=== PATIENT | female | born 1990 | race Caucasian/White ===

== ENCOUNTER 2021-12-25 12:57 | Outpatient (CLI) | payer BC | END 2021-12-25 12:58 | disposition home or self-care (01) | LOC: CSHLAB 12:57 | PROVIDERS: ATTEND Obstetrics & Gynecology | DX: Z20.822 Contact with and (suspected) exposure to COVID-19 (principal) | CPT/HCPCS: U0003; U0005 ==

== ENCOUNTER 2021-12-26 13:41 | Inpatient (IN) | payer BC ==
[~2021-12-26 13:41] MED LIST: Bupivacaine/Epinephrine 0.25% 30 ML VIAL ONE; Lidocaine 2% PF 5 ML VIAL ONE; ePHEDrine Sulfate 50 MG/10 ML VIAL ONE
[2021-12-26] MEDS ORDERED: HYDROcodone/Acetaminophen 5/325 mg Tablet PO PRN ×2 (14:18)
[2021-12-26] MEDS ORDERED: Lidocaine 1% (PF) 30 ML VIAL SC PRN (14:18)
[2021-12-26] MEDS ORDERED: hydrALAZINE 20 MG/ML VIAL SLOW IVP PRN (14:18)
[2021-12-26] MEDS ORDERED: Ibuprofen 800 MG TAB PO PRN (14:18)
[2021-12-26] MEDS ORDERED: Carboprost 250 MCG/ML AMP IM PRN (14:18)
[2021-12-26] MEDS ORDERED: Ondansetron PF 4 MG/2 ML Vial IVP PRN ×2 (14:18→18:47)
[2021-12-26] MEDS ORDERED: Methylergonovine 0.2 MG/ML VIAL IM PRN (14:18)
[2021-12-26] MEDS ORDERED: Promethazine HCl 25 MG/ML VIAL IM PRN ×2 (14:18→18:47)
[2021-12-26] MEDS ORDERED: Acetaminophen 500 MG TAB PO PRN (14:18)
[2021-12-26] MEDS ORDERED: Diphenoxylate HCl/Atropine Tablet PO PRN ×2 (14:18)
[2021-12-26] MEDS ORDERED: Misoprostol 200 MCG TAB PR PRN (14:18)
[2021-12-26] MEDS ORDERED: Butorphanol Tartrate 1 MG/ML VIAL SLOW IVP PRN (14:18)
[2021-12-26] MEDS ORDERED: Lactated Ringer's 1,000 ML IV SCH (14:30)
[2021-12-26] MEDS ORDERED: NS w/ Oxytocin 30 units 500 ML IV SCH ×2 (14:30)
[2021-12-26 15:08] VITALS: BMI 23.4
[2021-12-26 15:08] LABS: Hemoglobin 12.3 g/dL (12.0-15.5); Mean Corpuscular HGB CONC 33.2 g/dL (32.0-36.0); Mean Corpuscular Volume 96.6 fl (81.6-98.3); Mean Platelet Volume 10.1 fl (7.4-10.4); Platelet Count 369 10x3/uL (150-450); RBC Distribution Width 12.4 % (11.5-14.5); Red Blood Cell (RBC) Count 3.84 10x6/uL (3.90-5.03); White Blood Cell (WBC) Count 9.6 10x3/uL (3.5-10.5)
[2021-12-26 15:44] LABS: HBSAg Index 0.22 S/CO (0-0.99); Hep B Surf Ag Non-Reactive S/CO (NonReactive); Syphilis Antibody Nonreactive (Nonreactive); Syphilis Antibody Index 0.03 S/CO (<1.00 Non-Reactive)
[2021-12-26] MEDS ORDERED: Fentanyl 2 mcg/Bup 0.1% Cadd 100 ML ONE (18:20)
[2021-12-26] MEDS ORDERED: Fentanyl 100 MCG/2 ML VIAL ONE (18:27)
[2021-12-26] MEDS ORDERED: Acetaminophen 325 MG TAB PO PRN (18:47)
[2021-12-26] MEDS ORDERED: Naloxone HCl 0.4 mg/ml Vial IVP PRN ×2 (18:47)
[2021-12-26] MEDS ORDERED: Moisturizing Cream (Eucerin) 113 GM JAR TOP PRN (18:47)
[2021-12-26] MEDS ORDERED: diphenhydrAMINE 50 MG/ML VIAL IVP PRN (18:47)
[2021-12-26] MEDS ORDERED: Lactated Ringer's 500 ML IV PRN (18:47)
[2021-12-26] MEDS ORDERED: Communication Order-Pharmacy FS SCH (19:00)
[2021-12-26] MEDS ORDERED: Fentanyl 2 mcg/Bupivacaine 0.1% Cassette 100 ML EPIDURAL SCH (19:00)
[2021-12-26] MEDS: ePHEDrine Sulfate 50 MG/10 ML VIAL SLOW IVP PRN ×2 (19:48→20:13)
[2021-12-27] MEDS ORDERED: CEFAZOLIN 2 GM VIAL ONE (01:37)
[2021-12-27] MEDS ORDERED: PROPOFOL 20 ML ONE (02:01)
[2021-12-27] MEDS ORDERED: Fentanyl 100 MCG/2 ML VIAL ONE (02:01)
[2021-12-27] MEDS ORDERED: Erythromycin Base 0.5% Oint 1 GM TUBE ONE (02:01)
[2021-12-27] MEDS ORDERED: Phytonadione Neonatal 1 MG/0.5 ML AMP ONE (02:01)
[2021-12-27] MEDS ORDERED: Ondansetron PF 4 MG/2 ML Vial ONE (02:02)
[2021-12-27] MEDS ORDERED: Dexamethasone 20 MG/5 ML VIAL ONE (02:02)
[2021-12-27] MEDS ORDERED: Lidocaine 1% PF 5 ML VIAL ONE (02:04)
[2021-12-27] MEDS ORDERED: Carboprost 250 MCG/ML AMP ONE (02:06)
[2021-12-27] MEDS ORDERED: Succinylcholine 200 MG/10 ml SYRINGE FS ONE (02:06)
[2021-12-27] MEDS ORDERED: Misoprostol 200 MCG TAB ONE (02:06)
[2021-12-27] MEDS ORDERED: Methylergonovine 0.2 MG/ML VIAL ONE (02:06)
[2021-12-27] MEDS ORDERED: NS w/ Oxytocin 30 units 500 ML ONE (02:07)
[2021-12-27] MEDS ORDERED: Tranexamic Acid 1,000 MG/10 ML VIAL ONE (02:07)
[2021-12-27] MEDS ORDERED: Bisacodyl 10 MG SUPP PR PRN (06:50)
[2021-12-27] MEDS ORDERED: HYDROcodone/Acetaminophen 5/325 mg Tablet PO PRN ×2 (06:50)
[2021-12-27] MEDS ORDERED: diphenhydrAMINE 25 MG CAP PO PRN (06:50)
[2021-12-27] MEDS ORDERED: Benzocaine-Menthol 82.5 ML CAN TOP PRN (06:50)
[2021-12-27] MEDS ORDERED: Ondansetron PF 4 MG/2 ML Vial IVP PRN (06:50)
[2021-12-27] MEDS ORDERED: Boostrix 0.5 ML (Tdap) VIAL (>/=7 yrs of age) IM ONE (06:50)
[2021-12-27] MEDS ORDERED: Lanolin Ointment 7 GM TUBE TOP PRN (06:50)
[2021-12-27] MEDS ORDERED: hydrALAZINE 20 MG/ML VIAL SLOW IVP PRN (06:50)
[2021-12-27] MEDS ORDERED: Preparation H Ointment 28 GM TUBE PR PRN (06:50)
[2021-12-27] MEDS ORDERED: Milk Of Magnesia 30 ML UDCUP PO PRN (06:50)
[2021-12-27] MEDS: Docusate 100 MG CAP PO SCH (09:03)
[2021-12-27] MEDS: Prenatal Vitamin 1 TAB PO SCH (09:03)
[2021-12-27] MEDS: Ibuprofen 800 MG TAB PO SCH ×2 (09:03→17:38)
[2021-12-27] MEDS: Ferrous Sulfate 325 MG TAB PO SCH ×2 (21:21→23:23)
[2021-12-28] MEDS: Docusate 100 MG CAP PO SCH ×2 (00:56→09:00)
[2021-12-28] MEDS: Ibuprofen 800 MG TAB PO SCH ×2 (00:56→09:00)
[2021-12-28 07:50] VITALS: BP 90/54; TEMP 98
[2021-12-28] MEDS: Ferrous Sulfate 325 MG TAB PO SCH (08:56)
[2021-12-28] MEDS: Prenatal Vitamin 1 TAB PO SCH (09:00)
== END 2021-12-28 11:20 | disposition home or self-care (01) | DRG 807 ==
LOC: CSHLD 13:41 → CSHPP 12-27 20:57
PROVIDERS: ADMIT Obstetrics & Gynecology; ATTEND Obstetrics & Gynecology
PROC: 10907ZC Drainage of Amniotic Fluid, Therapeutic from Products of Conception, Via Natural or Artificial Opening (ICD-10-PCS; 2021-12-26)
PROC: 10E0XZZ Delivery of Products of Conception, External Approach (ICD-10-PCS; principal; 2021-12-27)
PROC: 10D17Z9 Manual Extraction of Products of Conception, Retained, Via Natural or Artificial Opening (ICD-10-PCS; 2021-12-27)
DX: O73.0 Retained placenta without hemorrhage (principal); Z37.0 Single live birth; Z3A.40 40 weeks gestation of pregnancy; Z20.822 Contact with and (suspected) exposure to COVID-19
CPT/HCPCS: 36415; 51702; 85027; 86780; 86850; 86900; 86901; 87340; 88307; J0690; J1100; J2001; J2405; J2590; J2704; J3010; U0003; U0005